=== PATIENT | female | born 1955 | race Caucasian/White ===

== ENCOUNTER 2016-10-21 18:20 | Emergency (ER) | payer OTHER ==
[~2016-10-21 18:20] MED LIST: ASPIRIN CHILDRE81 MG PO; CLINDAMYCIN HC300 MG PO; COL-RITE100 MG PO; HUMALOG100 U/ML SC; HYDROCODONE BIT1 T11 PO; INVOKANA PO; KOMBIGLYZE XR 11 TE1 PO; LANTUS100 U/ML SC; LISINOPRIL20 MG PO; LOPRESSOR25 MG PO; LORAZEPAM0.5 MG PO; Motrin,Rufen800 MG PO; NEURONTIN300 MG PO; NITROSTAT0.4 MG SL; NORVASC5 MG PO; PHENERGAN W/ DE30 ML PO; PLAVIX75 MG PO; PLETAL50 MG PO; PREDNICOT10 MG PO; PRILOSEC20 MG PO; PROAIR HFA0.09 MG/AC INH; VICTOZA6 MG/ML SC; VITAMIN D50000 I2 PO; ZOLOFT100 MG PO
== END 2016-10-21 19:12 | disposition home or self-care (01) ==
LOC: ED 18:20
DX: G89.29 Other chronic pain (principal); M54.5 Low back pain; M79.645 Pain in left finger(s); R03.0 Elevated blood-pressure reading, without diagnosis of hypertension; Z88.0 Allergy status to penicillin; Z88.6 Allergy status to analgesic agent; Z79.4 Long term (current) use of insulin; Z79.899 Other long term (current) drug therapy

== ENCOUNTER 2016-11-06 16:25 | Emergency (ER) | payer OTHER ==
[~2016-11-06] VITALS: Ht 180.3 cm; Wt 115.7 kg
[2016-11-06] MEDS ORDERED: TRULICITY0.75 MG/0. SC (16:32)
[2016-11-06] MEDS ORDERED: TOUJEO300 U/ML SC (16:33)
[2016-11-06 16:46] LABS: BILIRUBIN NEGATIVE (NEGATIVE); BLOOD 2+ (NEGATIVE); CLARITY CLOUDY (CLEAR); COLOR YELLOW (YELLOW); GLUCOSE NEGATIVE (NEGATIVE); KETONE NEGATIVE (NEGATIVE); LEUKO ESTERASE 3+ (NEGATIVE); NITRITE NEGATIVE (NEGATIVE); PH 5.5 (5.0-9.0); PROTEIN NEGATIVE (NEGATIVE); SPECIFIC GRAVITY <= 1.005 (1.005-1.030); UROBILINOGEN 0.2 E.U./dl (0.2-1.0)
[2016-11-06 16:52] LABS: URINE REFLEX COMMENT YES (NO); WBC TNTC wbc/hpf (0-5)
[2016-11-06] MEDS ORDERED: BACTRIM DS 8001 TA1 PO (16:56)
== END 2016-11-06 17:01 | disposition home or self-care (01) ==
LOC: ED 16:25
PROVIDERS: Physician Assistant
DX: N30.01 Acute cystitis with hematuria (principal); Z91.030 Bee allergy status; Z88.0 Allergy status to penicillin; Z88.1 Allergy status to other antibiotic agents; Z88.6 Allergy status to analgesic agent; Z79.82 Long term (current) use of aspirin; Z79.899 Other long term (current) drug therapy

== ENCOUNTER 2017-10-25 16:56 | Inpatient (IN) | payer OTHER ==
[~2017-10-25] VITALS: Ht 180.3 cm; Wt 107.2 kg
[~2017-10-25 16:56] MED LIST changes: +BACTRIM DS 8001 TA1 PO; +TOUJEO300 U/ML SC; +TRULICITY0.75 MG/0. SC
[2017-10-25 16:57] VITALS: BP 153/56
[2017-10-25 18:10] LABS: ACT PARTIAL THROMBO TIME 23.9 SECONDS (20.8-31.5)
[2017-10-25 18:13] LABS: ALBUMIN 3.2 gm/dl (3.1-4.5); ALKALINE PHOSPHATASE 113 U/L (45-117); BUN 15 mg/dl (7-24); CHLORIDE 96 mmol/L (98-107); CREATININE 1.02 mg/dL (0.55-1.02); LIPASE 291 U/L (73-393); POTASSIUM 3.4 mmol/L (3.5-5.1); SGOT/AST 23 IU/L (3-35); SGPT/ALT 31 U/L (12-78); SODIUM 136 mmol/L (136-145); TOTAL PROTEIN 7.7 gm/dL (6.4-8.2)
[2017-10-25 18:14] LABS: TROPONIN I < 0.015 ng/ml (<0.045)
[2017-10-25 18:24] LABS: BASO # 0.1 10*3/uL (0.0-0.1); BASO % 0.5 % (0.0-1.0); EOS # 0.2 10*3/uL (0.0-0.4); EOS % 1.7 % (1.0-4.0); HEMATOCRIT 36.3 % (37.0-47.0); HEMOGLOBIN 11.8 g/dl (12.0-16.0); LYMPH # 2.5 10*3/uL (1.3-4.4); MEAN CELL VOLUME 85.8 fl (81.0-99.0); MEAN CORPUSCULAR HGB 27.9 pg (27.0-31.0); MEAN CORPUSCULAR HGB CONC 32.5 g/dl (33.0-37.0); MEAN PLATELET VOLUME 9.5 fl (9.6-12.3); MONO % 8.7 % (3.0-9.0); NEUT % 67.6 % (47.0-73.0); PLATELET COUNT AUTOMATED 226 10*3/uL (130-400); RED BLOOD COUNT 4.23 10*6/uL (4.10-5.10); RED CELL DISTRI WIDTH 15.3 % (0-14.5); WHITE BLOOD COUNT 11.8 10*3/uL (4.8-10.8)
[2017-10-25 18:38] VITALS: BP 145/56
[2017-10-25 18:51] VITALS: BP 145/56
[2017-10-25 20:00] VITALS: BP 170/51
[2017-10-25 20:33] VITALS: BP 170/51
[2017-10-25] MEDS ORDERED: BUMETANIDE0.5 MG PO (21:03)
[2017-10-26] VITALS: BP 167/49
[2017-10-26 07:44] LABS: BASO % 0.1 % (0.0-1.0); HEMATOCRIT 33.7 % (37.0-47.0); HEMOGLOBIN 10.9 g/dl (12.0-16.0); LYMPH # 1.1 10*3/uL (1.3-4.4); LYMPH % 9.9 % (27.0-41.0); MEAN CELL VOLUME 85.3 fl (81.0-99.0); MEAN CORPUSCULAR HGB 27.6 pg (27.0-31.0); MEAN CORPUSCULAR HGB CONC 32.3 g/dl (33.0-37.0); MEAN PLATELET VOLUME 9.5 fl (9.6-12.3); MONO # 0.6 10*3/uL (0.1-1.0); MONO % 5.5 % (3.0-9.0); NEUT % 83.6 % (47.0-73.0); PLATELET COUNT AUTOMATED 206 10*3/uL (130-400); RED BLOOD COUNT 3.95 10*6/uL (4.10-5.10); RED CELL DISTRI WIDTH 14.8 % (0-14.5); WHITE BLOOD COUNT 10.8 10*3/uL (4.8-10.8)
[2017-10-26 07:56] LABS: ACT PARTIAL THROMBO TIME 24.7 SECONDS (20.8-31.5); INTERNATIONAL NORM RATIO 1.1 (2.0-3.5)
[2017-10-26 08:00] VITALS: BP 133/46
[2017-10-26 08:25] LABS: ALBUMIN 2.8 gm/dl (3.1-4.5); BUN 15 mg/dl (7-24); CHLORIDE 97 mmol/L (98-107); CHOLESTEROL 207 mg/dL (<200); CREATININE 1.08 mg/dL (0.55-1.02); PHOSPHOROUS 4.2 mg/dL (2.5-4.9); POTASSIUM 3.7 mmol/L (3.5-5.1); SGOT/AST 19 IU/L (3-35); SGPT/ALT 26 U/L (12-78); SODIUM 134 mmol/L (136-145); TRIGLYCERIDES 227 mg/dl (<150); VLDL CHOLESTEROL 45 mg/dL (6-40)
[2017-10-26 08:30] LABS: ALKALINE PHOSPHATASE 97 U/L (45-117); FREE T4 0.88 ng/dl (0.76-1.46); HDL CHOLESTEROL 43 mg/dl (40-60); LDL CHOLESTEROL 119 mg/dL (9-159); THYROID STIM HORMONE (HS) 0.303 uIU/ml (0.358-4.75); TOTAL PROTEIN 6.8 gm/dL (6.4-8.2)
[2017-10-26 08:32] LABS: VITAMIN D, 25-HYDROXY 27.7 ng/mL (30-100)
[2017-10-26 12:00] VITALS: BP 112/34
[2017-10-26 16:00] VITALS: BP 148/58
[2017-10-26 20:00] VITALS: BP 144/52
[2017-10-27] VITALS: BP 139/75
[2017-10-27 06:25] LABS: BASO % 0.1 % (0.0-1.0); EOS % 0.1 % (1.0-4.0); HEMOGLOBIN 11.3 g/dl (12.0-16.0); LYMPH # 1.4 10*3/uL (1.3-4.4); LYMPH % 11.8 % (27.0-41.0); MEAN CORPUSCULAR HGB 27.8 pg (27.0-31.0); MEAN CORPUSCULAR HGB CONC 32.3 g/dl (33.0-37.0); MEAN PLATELET VOLUME 9.5 fl (9.6-12.3); MONO # 0.8 10*3/uL (0.1-1.0); MONO % 6.5 % (3.0-9.0); NEUT # 9.5 10*3/uL (2.3-7.9); NEUT % 80.4 % (47.0-73.0); PLATELET COUNT AUTOMATED 206 10*3/uL (130-400); RED BLOOD COUNT 4.07 10*6/uL (4.10-5.10); RED CELL DISTRI WIDTH 15.1 % (0-14.5); WHITE BLOOD COUNT 11.8 10*3/uL (4.8-10.8)
[2017-10-27 06:41] LABS: BUN 22 mg/dl (7-24); CHLORIDE 98 mmol/L (98-107); CREATININE 1.09 mg/dL (0.55-1.02); POTASSIUM 4.5 mmol/L (3.5-5.1); SODIUM 134 mmol/L (136-145)
[2017-10-27 08:00] VITALS: BP 140/46
[2017-10-27 12:00] VITALS: BP 146/55
[2017-10-27 16:00] VITALS: BP 120/48
[2017-10-27] MEDS ORDERED: METFORMIN ER500 MG PO (16:33)
[2017-10-27 20:00] VITALS: BP 157/57
[2017-10-28] VITALS: BP 172/70
[2017-10-28 04:00] VITALS: BP 142/51
[2017-10-28 06:13] LABS: BASO % 0.1 % (0.0-1.0); EOS % 0.1 % (1.0-4.0); HEMATOCRIT 36.4 % (37.0-47.0); HEMOGLOBIN 11.6 g/dl (12.0-16.0); LYMPH # 3.6 10*3/uL (1.3-4.4); LYMPH % 26.8 % (27.0-41.0); MEAN CELL VOLUME 86.5 fl (81.0-99.0); MEAN CORPUSCULAR HGB 27.6 pg (27.0-31.0); MEAN CORPUSCULAR HGB CONC 31.9 g/dl (33.0-37.0); MEAN PLATELET VOLUME 9.6 fl (9.6-12.3); MONO # 1.1 10*3/uL (0.1-1.0); MONO % 7.8 % (3.0-9.0); NEUT # 8.6 10*3/uL (2.3-7.9); NEUT % 64.2 % (47.0-73.0); PLATELET COUNT AUTOMATED 223 10*3/uL (130-400); RED BLOOD COUNT 4.21 10*6/uL (4.10-5.10); RED CELL DISTRI WIDTH 15.3 % (0-14.5); WHITE BLOOD COUNT 13.4 10*3/uL (4.8-10.8)
[2017-10-28 06:25] LABS: BUN 23 mg/dl (7-24); CHLORIDE 97 mmol/L (98-107); CREATININE 0.98 mg/dL (0.55-1.02); POTASSIUM 3.7 mmol/L (3.5-5.1); SODIUM 136 mmol/L (136-145)
[2017-10-28 08:00] VITALS: BP 137/58
[2017-10-28 16:00] VITALS: BP 132/59
[2017-10-28 20:00] VITALS: BP 147/56
[2017-10-29] VITALS: BP 146/52
[2017-10-29 08:00] VITALS: BP 142/57
[2017-10-29] MEDS ORDERED: MUCINEX ER600 MG PO (09:37)
[2017-10-29] MEDS ORDERED: PREDNISONE10 MG PO (09:37)
[2017-10-29] MEDS ORDERED: LEVAQUIN500 M2 PO (09:37)
[2017-10-29] MEDS ORDERED: BENZONATATE100 M1 PO (09:37)
== END 2017-10-29 11:08 | disposition home or self-care (01) | DRG 190 ==
LOC: ED 16:56 → 4E 18:34 → EDHOLD 18:34 → 4E 19:33
PROVIDERS: Emergency Medicine; Internal Medicine
DX: J44.1 Chronic obstructive pulmonary disease with (acute) exacerbation (principal); J18.9 Pneumonia, unspecified organism; E11.51 Type 2 diabetes mellitus with diabetic peripheral angiopathy without gangrene; E11.649 Type 2 diabetes mellitus with hypoglycemia without coma; I50.9 Heart failure, unspecified; E66.01 Morbid (severe) obesity due to excess calories; I25.810 Atherosclerosis of coronary artery bypass graft(s) without angina pectoris; E87.2 Acidosis; J44.0 Chronic obstructive pulmonary disease with (acute) lower respiratory infection; D64.9 Anemia, unspecified; E87.6 Hypokalemia; E83.42 Hypomagnesemia; E11.65 Type 2 diabetes mellitus with hyperglycemia; M79.2 Neuralgia and neuritis, unspecified; G89.29 Other chronic pain; E87.8 Other disorders of electrolyte and fluid balance, not elsewhere classified; F41.9 Anxiety disorder, unspecified; I25.2 Old myocardial infarction; Z88.5 Allergy status to narcotic agent; Z88.0 Allergy status to penicillin; Z88.1 Allergy status to other antibiotic agents; Z91.030 Bee allergy status; Z79.82 Long term (current) use of aspirin; Z79.4 Long term (current) use of insulin; Z79.899 Other long term (current) drug therapy; Z87.440 Personal history of urinary (tract) infections; Z83.3 Family history of diabetes mellitus; Z82.49 Family history of ischemic heart disease and other diseases of the circulatory system; Z90.49 Acquired absence of other specified parts of digestive tract; Z95.1 Presence of aortocoronary bypass graft; Z90.710 Acquired absence of both cervix and uterus; Z95.0 Presence of cardiac pacemaker; Z95.828 Presence of other vascular implants and grafts; Z87.891 Personal history of nicotine dependence; Z83.6 Family history of other diseases of the respiratory system; Z84.89 Family history of other specified conditions

== ENCOUNTER 2017-11-28 21:13 | Emergency (ER) | payer OTHER ==
[~2017-11-28] VITALS: Ht 180.3 cm; Wt 121.6 kg
--- NOTE | ~2017-11-28 | EKG ---
[place], [place] ELECTROCARDIOGRAM REPORT NAME: WILLIE SALES UNIT #: [id number] ROOM: DOCTOR: EPIPHANY DRAFT REPORT BIRTHDATE: [birth year] [facility] Test Date: 2017-11-28 Test Time: 22:22:23 Pat Name: WILLIE SALES Department: ER Room: 22 Gender: F Staffing Account Manager: : 1955 Requested By: SAMY DUEÑAS Order Number: [id number] Reading MD: Javad Vasquez MD Measurements Intervals Collins Rate: 63 P: 38 VT: 187 QRS: 62 QRSD: 116 T: 9 QT: 439 QTc: 450 Interpretive Statements Sinus rhythm Incomplete right bundle branch block Minimal ST elevation, anterior leads Electronically Signed On 11-30-2017 11:08:38 PDT by Javad Vasquez MD CM:EKGRPT:ELECTROCARDIOGRAM REPORT [id number] SAMY DUEÑAS EPIPHANY DRAFT REPORT SAMY DUEÑAS
[~2017-11-28 21:13] MED LIST changes: +BENZONATATE100 M1 PO; +BUMETANIDE0.5 MG PO; +LEVAQUIN500 M2 PO; +METFORMIN ER500 MG PO; +MUCINEX ER600 MG PO; +PREDNISONE10 MG PO
[2017-11-28 22:37] LABS: BASO # 0.1 10*3/uL (0.0-0.1); BASO % 0.5 % (0.0-1.0); EOS # 0.2 10*3/uL (0.0-0.4); EOS % 2.1 % (1.0-4.0); HEMATOCRIT 36.3 % (37.0-47.0); HEMOGLOBIN 11.8 g/dl (12.0-16.0); LYMPH # 3.2 10*3/uL (1.3-4.4); LYMPH % 33.3 % (27.0-41.0); MEAN CELL VOLUME 87.3 fl (81.0-99.0); MEAN CORPUSCULAR HGB 28.4 pg (27.0-31.0); MEAN CORPUSCULAR HGB CONC 32.5 g/dl (33.0-37.0); MEAN PLATELET VOLUME 9.3 fl (9.6-12.3); MONO # 0.9 10*3/uL (0.1-1.0); MONO % 9.8 % (3.0-9.0); NEUT # 5.1 10*3/uL (2.3-7.9); NEUT % 53.7 % (47.0-73.0); PLATELET COUNT AUTOMATED 187 10*3/uL (130-400); RED BLOOD COUNT 4.16 10*6/uL (4.10-5.10); RED CELL DISTRI WIDTH 14.7 % (0-14.5); WHITE BLOOD COUNT 9.6 10*3/uL (4.8-10.8)
[2017-11-28 22:47] LABS: ACT PARTIAL THROMBO TIME 24.3 SECONDS (20.8-31.5); INTERNATIONAL NORM RATIO 1.1 (2.0-3.5)
[2017-11-28 22:53] LABS: ALBUMIN 3.1 gm/dl (3.1-4.5); ALKALINE PHOSPHATASE 108 U/L (45-117); BUN 12 mg/dl (7-24); CHLORIDE 102 mmol/L (98-107); LIPASE 770 U/L (73-393); POTASSIUM 3.6 mmol/L (3.5-5.1); SGOT/AST 28 IU/L (3-35); SGPT/ALT 32 U/L (12-78); SODIUM 139 mmol/L (136-145); TOTAL PROTEIN 7.1 gm/dL (6.4-8.2)
[2017-11-28 22:54] LABS: TROPONIN I < 0.015 ng/ml (<0.045)
[2017-11-29] MEDS ORDERED: MEDROL DOSEPAK4 MG PO (00:36)
== END 2017-11-29 01:09 | disposition home or self-care (01) ==
LOC: ED 21:13
PROVIDERS: Nurse Practitioner Family
DX: R60.0 Localized edema (principal); Z91.030 Bee allergy status; Z88.0 Allergy status to penicillin; Z88.1 Allergy status to other antibiotic agents; Z88.6 Allergy status to analgesic agent; Z79.899 Other long term (current) drug therapy; Z79.82 Long term (current) use of aspirin; Z87.891 Personal history of nicotine dependence

== ENCOUNTER 2017-12-21 21:29 | Emergency (ER) | payer OTHER ==
[~2017-12-21] VITALS: Ht 180.3 cm; Wt 117.9 kg
[~2017-12-21 21:29] MED LIST changes: +MEDROL DOSEPAK4 MG PO
[2017-12-21 22:21] LABS: BILIRUBIN NEGATIVE (NEGATIVE); BLOOD 2+ (NEGATIVE); CLARITY CLOUDY (CLEAR); COLOR YELLOW (YELLOW); GLUCOSE NEGATIVE (NEGATIVE); KETONE NEGATIVE (NEGATIVE); LEUKO ESTERASE 3+ (NEGATIVE); NITRITE NEGATIVE (NEGATIVE); UROBILINOGEN 0.2 E.U./dl (0.2-1.0)
[2017-12-21 22:32] LABS: WBC TNTC wbc/hpf (0-5)
[2017-12-21] MEDS ORDERED: CIPRO500 MG PO (23:24)
[2017-12-21] MEDS ORDERED: PYRIDIUM200 M1 PO (23:24)
== END 2017-12-21 23:26 | disposition home or self-care (01) ==
LOC: ED 21:29
PROVIDERS: Emergency Medicine
DX: N39.0 Urinary tract infection, site not specified (principal); I25.10 Atherosclerotic heart disease of native coronary artery without angina pectoris; G89.29 Other chronic pain; J44.9 Chronic obstructive pulmonary disease, unspecified; E66.01 Morbid (severe) obesity due to excess calories; I11.0 Hypertensive heart disease with heart failure; I50.9 Heart failure, unspecified; E11.649 Type 2 diabetes mellitus with hypoglycemia without coma; Z79.4 Long term (current) use of insulin; Z79.82 Long term (current) use of aspirin; Z87.891 Personal history of nicotine dependence; Z90.49 Acquired absence of other specified parts of digestive tract; Z95.1 Presence of aortocoronary bypass graft; Z95.0 Presence of cardiac pacemaker; Z90.711 Acquired absence of uterus with remaining cervical stump; Z79.899 Other long term (current) drug therapy; Z91.030 Bee allergy status; Z88.0 Allergy status to penicillin; Z88.5 Allergy status to narcotic agent; Z88.1 Allergy status to other antibiotic agents

== ENCOUNTER 2018-07-06 11:04 | Emergency (ER) | payer OTHER ==
[~2018-07-06] VITALS: Ht 180.3 cm; Wt 114.3 kg
[~2018-07-06 11:04] MED LIST changes: +CIPRO500 MG PO; +PYRIDIUM200 M1 PO
[2018-07-06 11:23] LABS: BILIRUBIN NEGATIVE (NEGATIVE); BLOOD 2+ (NEGATIVE); CLARITY SL CLOUDY (CLEAR); COLOR YELLOW (YELLOW); GLUCOSE NEGATIVE (NEGATIVE); KETONE NEGATIVE (NEGATIVE); LEUKO ESTERASE 3+ (NEGATIVE); NITRITE NEGATIVE (NEGATIVE); PH 5.5 (5.0-9.0); SPECIFIC GRAVITY <= 1.005 (1.005-1.030); UROBILINOGEN 0.2 E.U./dl (0.2-1.0)
[2018-07-06 11:33] LABS: BACTERIA 2+; RBC TNTC rbc/hpf (0-2); WBC TNTC wbc/hpf (0-5)
[2018-07-06] MEDS ORDERED: PYRIDIUM200 M1 PO (11:44)
[2018-07-06] MEDS ORDERED: SEPTDS PO (11:44)
[2018-07-06] MEDS ORDERED: ZOFRAN4 MG PO (11:44)
== END 2018-07-06 12:05 | disposition home or self-care (01) ==
LOC: ED 11:04
PROVIDERS: Nurse Practitioner Family
DX: N39.0 Urinary tract infection, site not specified (principal); R03.0 Elevated blood-pressure reading, without diagnosis of hypertension; G89.29 Other chronic pain; I25.10 Atherosclerotic heart disease of native coronary artery without angina pectoris; J44.9 Chronic obstructive pulmonary disease, unspecified; E66.01 Morbid (severe) obesity due to excess calories; E11.40 Type 2 diabetes mellitus with diabetic neuropathy, unspecified; E11.51 Type 2 diabetes mellitus with diabetic peripheral angiopathy without gangrene; I50.9 Heart failure, unspecified; Z88.1 Allergy status to other antibiotic agents; Z88.5 Allergy status to narcotic agent; Z88.0 Allergy status to penicillin; Z91.030 Bee allergy status; Z79.2 Long term (current) use of antibiotics; Z79.899 Other long term (current) drug therapy; Z79.84 Long term (current) use of oral hypoglycemic drugs; Z79.4 Long term (current) use of insulin; Z79.82 Long term (current) use of aspirin; Z90.49 Acquired absence of other specified parts of digestive tract; Z90.710 Acquired absence of both cervix and uterus; Z87.891 Personal history of nicotine dependence

== ENCOUNTER 2018-07-10 20:53 | Emergency (ER) | payer OTHER ==
[~2018-07-10] VITALS: Ht 180.3 cm; Wt 113.4 kg
[~2018-07-10 20:53] MED LIST changes: +SEPTDS PO; +ZOFRAN4 MG PO
[2018-07-10 21:20] LABS: BILIRUBIN 2+ (NEGATIVE); BLOOD 2+ (NEGATIVE); CLARITY CLOUDY (CLEAR); COLOR ORANGE (YELLOW); GLUCOSE 1+ (NEGATIVE); KETONE 1+ (NEGATIVE); NITRITE POSITIVE (NEGATIVE); UROBILINOGEN >= 8.0 E.U./dl (0.2-1.0)
[2018-07-10 21:25] LABS: LEUKO ESTERASE 2+ (NEGATIVE)
[2018-07-10 21:30] LABS: WBC TNTC wbc/hpf (0-5)
[2018-07-10] MEDS ORDERED: CIPRO500 MG PO (21:34)
== END 2018-07-10 21:55 | disposition home or self-care (01) ==
LOC: ED 20:53
PROVIDERS: Student in an Organized Health Care Education/Training Program
DX: N39.0 Urinary tract infection, site not specified (principal); I25.10 Atherosclerotic heart disease of native coronary artery without angina pectoris; G89.29 Other chronic pain; J44.9 Chronic obstructive pulmonary disease, unspecified; E11.40 Type 2 diabetes mellitus with diabetic neuropathy, unspecified; E66.01 Morbid (severe) obesity due to excess calories; E11.51 Type 2 diabetes mellitus with diabetic peripheral angiopathy without gangrene; I50.9 Heart failure, unspecified; Z91.030 Bee allergy status; Z88.0 Allergy status to penicillin; Z88.1 Allergy status to other antibiotic agents; Z88.5 Allergy status to narcotic agent; Z79.2 Long term (current) use of antibiotics; Z79.899 Other long term (current) drug therapy; Z79.4 Long term (current) use of insulin; Z79.82 Long term (current) use of aspirin; Z79.84 Long term (current) use of oral hypoglycemic drugs; Z90.49 Acquired absence of other specified parts of digestive tract; Z90.710 Acquired absence of both cervix and uterus; Z87.891 Personal history of nicotine dependence

== ENCOUNTER 2019-11-29 14:45 | Emergency (ER) | payer OTHER ==
[~2019-11-29] VITALS: Ht 180.3 cm; Wt 115.7 kg
== END 2019-11-29 17:08 | disposition home or self-care (01) ==
LOC: ED 14:45
DX: S92.512A Displaced fracture of proximal phalanx of left lesser toe(s), initial encounter for closed fracture (principal); E11.9 Type 2 diabetes mellitus without complications; I25.2 Old myocardial infarction; J44.9 Chronic obstructive pulmonary disease, unspecified; I50.9 Heart failure, unspecified; Z88.0 Allergy status to penicillin; Z88.8 Allergy status to other drugs, medicaments and biological substances; Z88.5 Allergy status to narcotic agent; Z91.030 Bee allergy status; Z79.899 Other long term (current) drug therapy; X58.XXXA Exposure to other specified factors, initial encounter; Y93.89 Activity, other specified; Y92.89 Other specified places as the place of occurrence of the external cause; Y99.8 Other external cause status

== ENCOUNTER 2020-03-20 14:17 | Emergency (ER) | payer OTHER ==
[~2020-03-20] VITALS: Ht 180.3 cm; Wt 117.9 kg
[2020-03-20 14:55] LABS: BILIRUBIN Negative (Negative); BLOOD 3+ (Negative); CLARITY Turbid (Clear); COLOR Yellow (Yellow); GLUCOSE Negative (Negative); KETONE Negative (Negative); LEUKO ESTERASE 3+ (Negative); NITRITE Negative (Negative); SPECIFIC GRAVITY <= 1.005 (1.001-1.030); UROBILINOGEN 0.2 E.U./dl (0.0-1.0)
[2020-03-20 15:02] LABS: BACTERIA 2+; RBC TNTC rbc/hpf (0-2); WBC TNTC wbc/hpf (0-5)
[2020-03-20] MEDS ORDERED: MACROBID100 M1 PO (16:28)
[2020-03-20] MEDS ORDERED: PYRIDIUM200 M1 PO (16:28)
== END 2020-03-20 16:25 | disposition home or self-care (01) ==
LOC: ED 14:17
PROVIDERS: Nurse Practitioner Family
DX: N39.0 Urinary tract infection, site not specified (principal); Z91.030 Bee allergy status; Z88.0 Allergy status to penicillin; Z79.899 Other long term (current) drug therapy; Z79.4 Long term (current) use of insulin; Z79.82 Long term (current) use of aspirin

== ENCOUNTER → 2020-06-29 | Outpatient (CLI) | payer OTHER ==
[~2020-06-29] MED LIST changes: +MACROBID100 M1 PO
== END | disposition home or self-care (01) ==
LOC: COVID19 12:54
PROVIDERS: ATTEND Family Medicine
DX: Z20.822 Contact with and (suspected) exposure to COVID-19 (principal)

== ENCOUNTER 2020-09-06 19:04 | Emergency (ER) | payer OTHER ==
[~2020-09-06] VITALS: Ht 180.3 cm; Wt 125.6 kg
[2020-09-06 19:59] LABS: BASO # 0.1 10*3/uL (0.0-0.1); BASO % 0.8 % (0.0-1.0); EOS # 0.3 10*3/uL (0.0-0.4); EOS % 2.9 % (1.0-4.0); LYMPH # 1.6 10*3/uL (1.3-4.4); MEAN CORPUSCULAR HGB 27.2 pg (27.0-31.0); MEAN CORPUSCULAR HGB CONC 31.7 g/dl (33.0-37.0); MEAN PLATELET VOLUME 9.2 fl (9.6-12.3); MONO # 0.8 10*3/uL (0.1-1.0); MONO % 8.3 % (3.0-9.0); NEUT # 6.3 10*3/uL (2.3-7.9); NEUT % 69.6 % (47.0-73.0); PLATELET COUNT AUTOMATED 199 10*3/uL (130-400); RED BLOOD COUNT 3.49 10*6/uL (4.10-5.10); RED CELL DISTRI WIDTH 15.5 % (0-14.5); WHITE BLOOD COUNT 9.1 10*3/uL (4.8-10.8)
[2020-09-06 20:10] LABS: BUN 18 mg/dl (7-24); CHLORIDE 103 mmol/L (98-107); CREATININE 0.99 mg/dL (0.55-1.02); POTASSIUM 4.9 mmol/L (3.5-5.1); SODIUM 133 mmol/L (136-145)
== END 2020-09-06 21:54 | disposition home or self-care (01) ==
LOC: ED 19:04
PROVIDERS: Internal Medicine
DX: I50.21 Acute systolic (congestive) heart failure (principal); E11.65 Type 2 diabetes mellitus with hyperglycemia; E87.1 Hypo-osmolality and hyponatremia; D64.9 Anemia, unspecified; Z91.030 Bee allergy status; J44.9 Chronic obstructive pulmonary disease, unspecified; Z88.8 Allergy status to other drugs, medicaments and biological substances; Z88.5 Allergy status to narcotic agent; Z79.899 Other long term (current) drug therapy; Z79.4 Long term (current) use of insulin; Z90.49 Acquired absence of other specified parts of digestive tract; Z95.1 Presence of aortocoronary bypass graft; Z98.890 Other specified postprocedural states; Z87.891 Personal history of nicotine dependence; Z95.0 Presence of cardiac pacemaker

== ENCOUNTER 2020-09-20 23:56 | Emergency (ER) | payer OTHER ==
[~2020-09-20] VITALS: Ht 180.3 cm; Wt 119.3 kg
[2020-09-21 01:31] LABS: BILIRUBIN Negative (Negative); BLOOD Negative (Negative); CLARITY Clear (Clear); COLOR Yellow (Yellow); GLUCOSE Negative (Negative); KETONE Negative (Negative); LEUKO ESTERASE Negative (Negative); NITRITE Negative (Negative); PH 5.5 (4.5-8.0); UROBILINOGEN 0.2 E.U./dl (0.0-1.0)
== END 2020-09-21 02:30 | disposition home or self-care (01) ==
LOC: ED 23:56
PROVIDERS: Internal Medicine
DX: R30.0 Dysuria (principal); E66.9 Obesity, unspecified; Z87.891 Personal history of nicotine dependence; Z98.890 Other specified postprocedural states; Z95.1 Presence of aortocoronary bypass graft; Z90.710 Acquired absence of both cervix and uterus; Z79.899 Other long term (current) drug therapy; Z79.4 Long term (current) use of insulin; Z91.030 Bee allergy status; Z88.0 Allergy status to penicillin; Z88.1 Allergy status to other antibiotic agents; Z88.5 Allergy status to narcotic agent

== ENCOUNTER 2022-02-17 16:27 | Inpatient (IN) | payer OTHER ==
[~2022-02-17] VITALS: Ht 175.2 cm; Wt 122.1 kg
[2022-02-17 16:41] VITALS: BP 131/39
[2022-02-17 17:25] LABS: BASO # 0.1 10*3/uL (0.0-0.1); BASO % 0.6 % (0.0-1.0); EOS # 0.3 10*3/uL (0.0-0.4); EOS % 2.9 % (1.0-4.0); HEMATOCRIT 30.5 % (37.0-47.0); LYMPH # 1.8 10*3/uL (1.3-4.4); LYMPH % 18.8 % (27.0-41.0); MEAN CELL VOLUME 82.7 fl (81.0-99.0); MEAN CORPUSCULAR HGB 28.5 pg (27.0-31.0); MEAN CORPUSCULAR HGB CONC 34.4 g/dl (33.0-37.0); MEAN PLATELET VOLUME 8.2 fl (9.6-12.3); MONO % 10.8 % (3.0-9.0); NEUT # 6.3 10*3/uL (2.3-7.9); NEUT % 66.5 % (47.0-73.0); PLATELET COUNT AUTOMATED 223 10*3/uL (130-400); RED BLOOD COUNT 3.69 10*6/uL (4.10-5.10); RED CELL DISTRI WIDTH 13.5 % (0-14.5); WHITE BLOOD COUNT 9.4 10*3/uL (4.8-10.8)
[2022-02-17 17:43] LABS: ALKALINE PHOSPHATASE 132 U/L (45-117); BUN 28 mg/dl (7-24); CHLORIDE 85 mmol/L (98-107); CREATININE 1.09 mg/dL (0.55-1.02); POTASSIUM 3.9 mmol/L (3.5-5.1); SGOT/AST 45 IU/L (3-35); SGPT/ALT 28 U/L (12-78); SODIUM 121 mmol/L (136-145); TOTAL PROTEIN 7.5 gm/dL (6.4-8.2)
[2022-02-17 17:58] VITALS: BP 128/45
[2022-02-17 18:02] LABS: BILIRUBIN Negative (Negative); BLOOD Trace-Lysed (Negative); CLARITY Clear (Clear); COLOR Yellow (Yellow); GLUCOSE Negative (Negative); KETONE Negative (Negative); LEUKO ESTERASE Negative (Negative); NITRITE Negative (Negative); UROBILINOGEN 0.2 E.U./dl (0.0-1.0)
[2022-02-17 18:11] LABS: BACTERIA 1+; EPITHELIAL CELLS 16-20
[2022-02-17 18:57] VITALS: BP 141/59
[2022-02-17 19:00] VITALS: BP 141/69
[2022-02-17 20:53] VITALS: BP 118/61
[2022-02-17 21:14] VITALS: BP 129/51
[2022-02-18] VITALS: BP 154/64
[2022-02-18 03:58] LABS: BASO # 0.1 10*3/uL (0.0-0.1); BASO % 0.6 % (0.0-1.0); EOS # 0.2 10*3/uL (0.0-0.4); EOS % 2.7 % (1.0-4.0); HEMATOCRIT 31.4 % (37.0-47.0); LYMPH # 1.3 10*3/uL (1.3-4.4); LYMPH % 15.8 % (27.0-41.0); MEAN CELL VOLUME 83.1 fl (81.0-99.0); MEAN CORPUSCULAR HGB 27.8 pg (27.0-31.0); MEAN CORPUSCULAR HGB CONC 33.4 g/dl (33.0-37.0); MEAN PLATELET VOLUME 8.3 fl (9.6-12.3); MONO % 11.4 % (3.0-9.0); NEUT # 5.8 10*3/uL (2.3-7.9); NEUT % 68.7 % (47.0-73.0); PLATELET COUNT AUTOMATED 233 10*3/uL (130-400); RED BLOOD COUNT 3.78 10*6/uL (4.10-5.10); RED CELL DISTRI WIDTH 13.7 % (0-14.5); WHITE BLOOD COUNT 8.4 10*3/uL (4.8-10.8)
[2022-02-18 04:08] LABS: ACT PARTIAL THROMBO TIME 29.9 SECONDS (20.0-32.1); INTERNATIONAL NORM RATIO 1.1 (2.0-3.5)
[2022-02-18 04:15] LABS: CREATININE 1.19 mg/dL (0.55-1.02); FREE T4 1.14 ng/dl (0.76-1.46); TOTAL PROTEIN 7.5 gm/dL (6.4-8.2)
[2022-02-18 04:20] VITALS: BP 149/79
[2022-02-18 04:20] LABS: THYROID STIM HORMONE (HS) 1.31 uIU/ml (0.358-4.75)
[2022-02-18 06:30] VITALS: BP 148/72
[2022-02-18 08:35] VITALS: BP 146/70
[2022-02-18] MEDS ORDERED: PROAIR HFA8.5 GM INH (12:53)
[2022-02-18] MEDS ORDERED: ALBUTEROL S5 MG/1 ML INH (12:53)
[2022-02-18] MEDS ORDERED: ASPIRIN81 M1 PO (12:54)
[2022-02-18] MEDS ORDERED: ATORVASTATIN CA80 M1 PO (12:54)
[2022-02-18] MEDS ORDERED: BENZONATATE200 MG PO (12:55)
[2022-02-18] MEDS ORDERED: RENAPLEX TABLE1 EACH PO (12:55)
[2022-02-18] MEDS ORDERED: BUMETANIDE2 MG PO (12:55)
[2022-02-18] MEDS ORDERED: ENTRESTO 49 MG1 EACH PO (12:56)
[2022-02-18] MEDS ORDERED: WELLBUTRIN SR150 MG PO (12:56)
[2022-02-18] MEDS ORDERED: FEROSUL325 M1 PO (12:58)
[2022-02-18] MEDS ORDERED: GABAPENTIN800 MG PO (12:59)
[2022-02-18] MEDS ORDERED: HYDROCODONE-AC1 EACH PO (13:01)
[2022-02-18] MEDS ORDERED: Metolazone5 MG PO (13:02)
[2022-02-18] MEDS ORDERED: MAGNESIUM OXID400 MG PO (13:02)
[2022-02-18] MEDS ORDERED: LORAZEPAM0.5 M1 PO (13:02)
[2022-02-18] MEDS ORDERED: OMEPRAZOLE MAGN20 MG PO (13:03)
[2022-02-18] MEDS ORDERED: NOVOLOG FL100 UNIT/2 SQ (13:03)
[2022-02-18] MEDS ORDERED: KLOR-CON M1010 ME1 PO (13:04)
[2022-02-18] MEDS ORDERED: ENDOCET 5-3251 EACH PO (13:04)
[2022-02-18] MEDS ORDERED: ONE-DAILY MULT1 EAC1 PO (13:04)
[2022-02-18] MEDS ORDERED: SERTRALINE HYD100 MG PO (13:05)
[2022-02-18] MEDS ORDERED: REPAGLINIDE1 M1 PO (13:05)
[2022-02-18] MEDS ORDERED: TOUJEO SOL300 UNIT/1 SQ (13:06)
[2022-02-18] MEDS ORDERED: SYMB80 INH (13:06)
[2022-02-18] MEDS ORDERED: TRULICITY1.5 MG/0.5 SC (13:07)
[2022-02-18] MEDS ORDERED: KENALOG 0.1%80 GM T (13:07)
[2022-02-18 13:22] VITALS: BP 148/62
[2022-02-18] MEDS ORDERED: WELLBUTRIN XL150 MG PO (19:09)
[2022-02-18 20:30] VITALS: BP 154/64
[2022-02-18 21:32] LABS: CREATININE 1.21 mg/dL (0.55-1.02); POTASSIUM 4.4 mmol/L (3.5-5.1)
[2022-02-19] VITALS: BP 160/56
[2022-02-19 07:17] LABS: BASO % 0.2 % (0.0-1.0); EOS % 0.1 % (1.0-4.0); HEMATOCRIT 31.5 % (37.0-47.0); LYMPH % 10.9 % (27.0-41.0); MEAN CELL VOLUME 82.9 fl (81.0-99.0); MEAN CORPUSCULAR HGB 28.2 pg (27.0-31.0); MEAN PLATELET VOLUME 8.5 fl (9.6-12.3); MONO # 0.6 10*3/uL (0.1-1.0); MONO % 6.1 % (3.0-9.0); NEUT # 7.8 10*3/uL (2.3-7.9); NEUT % 81.9 % (47.0-73.0); PLATELET COUNT AUTOMATED 257 10*3/uL (130-400); RED CELL DISTRI WIDTH 13.7 % (0-14.5); WHITE BLOOD COUNT 9.6 10*3/uL (4.8-10.8)
[2022-02-19 07:31] LABS: CREATININE 1.11 mg/dL (0.55-1.02); POTASSIUM 4.4 mmol/L (3.5-5.1)
[2022-02-19 08:00] VITALS: BP 150/56
[2022-02-19 12:00] VITALS: BP 149/47
[2022-02-19 16:00] VITALS: BP 122/51
[2022-02-19 18:26] LABS: BUN 33 mg/dl (7-24); CHLORIDE 90 mmol/L (98-107); POTASSIUM 4.5 mmol/L (3.5-5.1); SODIUM 121 mmol/L (136-145)
[2022-02-19 20:00] VITALS: BP 123/71
[2022-02-20] VITALS: BP 152/62
[2022-02-20 04:04] LABS: BASO % 0.1 % (0.0-1.0); HEMATOCRIT 28.1 % (37.0-47.0); LYMPH # 0.9 10*3/uL (1.3-4.4); LYMPH % 9.9 % (27.0-41.0); MEAN CELL VOLUME 84.9 fl (81.0-99.0); MEAN CORPUSCULAR HGB 28.4 pg (27.0-31.0); MEAN CORPUSCULAR HGB CONC 33.5 g/dl (33.0-37.0); MEAN PLATELET VOLUME 8.3 fl (9.6-12.3); MONO # 0.5 10*3/uL (0.1-1.0); MONO % 5.3 % (3.0-9.0); NEUT # 7.8 10*3/uL (2.3-7.9); NEUT % 83.5 % (47.0-73.0); PLATELET COUNT AUTOMATED 197 10*3/uL (130-400); RED BLOOD COUNT 3.31 10*6/uL (4.10-5.10); RED CELL DISTRI WIDTH 13.6 % (0-14.5); WHITE BLOOD COUNT 9.4 10*3/uL (4.8-10.8)
[2022-02-20 04:18] LABS: BUN 37 mg/dl (7-24); CHLORIDE 90 mmol/L (98-107); CREATININE 1.01 mg/dL (0.55-1.02); POTASSIUM 4.6 mmol/L (3.5-5.1); SODIUM 123 mmol/L (136-145)
[2022-02-20 08:00] VITALS: BP 154/56
[2022-02-20 12:00] VITALS: BP 150/67
[2022-02-20 13:40] LABS: CREATININE 1.14 mg/dL (0.55-1.02); POTASSIUM 4.7 mmol/L (3.5-5.1)
[2022-02-20 14:00] LABS: BILIRUBIN Negative (Negative); BLOOD 2+ (Negative); CLARITY Clear (Clear); COLOR Yellow (Yellow); GLUCOSE Negative (Negative); KETONE Negative (Negative); LEUKO ESTERASE Negative (Negative); NITRITE Negative (Negative); PH 5.5 (4.5-8.0); UROBILINOGEN 0.2 E.U./dl (0.0-1.0)
[2022-02-20 14:10] LABS: YEAST 1+
[2022-02-20 14:11] LABS: BACTERIA 1+; RBC 0-2 rbc/hpf (0-2)
[2022-02-20 14:21] LABS: URINE CREATININE RANDOM 40.6 mg/dL
[2022-02-20 16:00] VITALS: BP 105/80
[2022-02-20 20:00] VITALS: BP 164/48
[2022-02-20 20:34] LABS: BUN 35 mg/dl (7-24); CHLORIDE 94 mmol/L (98-107); POTASSIUM 4.6 mmol/L (3.5-5.1); SODIUM 125 mmol/L (136-145)
[2022-02-21] VITALS: BP 143/55
[2022-02-21 08:00] VITALS: BP 141/66
[2022-02-21 11:25] LABS: BASO % 0.2 % (0.0-1.0); LYMPH # 0.9 10*3/uL (1.3-4.4); LYMPH % 7.1 % (27.0-41.0); MEAN CORPUSCULAR HGB CONC 33.3 g/dl (33.0-37.0); MEAN PLATELET VOLUME 8.2 fl (9.6-12.3); MONO % 7.2 % (3.0-9.0); NEUT # 11.2 10*3/uL (2.3-7.9); NEUT % 84.7 % (47.0-73.0); PLATELET COUNT AUTOMATED 237 10*3/uL (130-400); RED BLOOD COUNT 3.57 10*6/uL (4.10-5.10); WHITE BLOOD COUNT 13.2 10*3/uL (4.8-10.8)
[2022-02-21 11:38] LABS: BUN 34 mg/dl (7-24); CHLORIDE 96 mmol/L (98-107); CREATININE 1.07 mg/dL (0.55-1.02); POTASSIUM 4.8 mmol/L (3.5-5.1); SODIUM 129 mmol/L (136-145)
[2022-02-21 12:00] VITALS: BP 169/57
[2022-02-21 16:00] VITALS: BP 165/75
[2022-02-21 20:00] VITALS: BP 133/40
[2022-02-22] VITALS: BP 163/66
[2022-02-22 06:26] LABS: BUN 36 mg/dl (7-24); CHLORIDE 98 mmol/L (98-107); CREATININE 1.02 mg/dL (0.55-1.02); SGOT/AST 25 IU/L (3-35); SGPT/ALT 30 U/L (12-78); SODIUM 131 mmol/L (136-145)
[2022-02-22 06:28] LABS: ALKALINE PHOSPHATASE 106 U/L (45-117); TOTAL PROTEIN 7.1 gm/dL (6.4-8.2)
[2022-02-22 07:04] LABS: BASO # 0.1 10*3/uL (0.0-0.1); BASO % 0.4 % (0.0-1.0); EOS % 0.1 % (1.0-4.0); HEMATOCRIT 29.5 % (37.0-47.0); LYMPH # 1.6 10*3/uL (1.3-4.4); LYMPH % 12.8 % (27.0-41.0); MEAN CORPUSCULAR HGB CONC 32.5 g/dl (33.0-37.0); MEAN PLATELET VOLUME 8.8 fl (9.6-12.3); MONO # 1.2 10*3/uL (0.1-1.0); MONO % 9.8 % (3.0-9.0); NEUT # 9.5 10*3/uL (2.3-7.9); NEUT % 76.2 % (47.0-73.0); PLATELET COUNT AUTOMATED 248 10*3/uL (130-400); RED BLOOD COUNT 3.43 10*6/uL (4.10-5.10); RED CELL DISTRI WIDTH 14.3 % (0-14.5); WHITE BLOOD COUNT 12.5 10*3/uL (4.8-10.8)
[2022-02-22 08:00] VITALS: BP 168/58
[2022-02-22 12:00] VITALS: BP 150/51
[2022-02-22 16:00] VITALS: BP 141/56
[2022-02-22 20:00] VITALS: BP 151/50
[2022-02-23] VITALS: BP 163/57
[2022-02-23 06:44] LABS: BASO % 0.2 % (0.0-1.0); LYMPH # 1.1 10*3/uL (1.3-4.4); LYMPH % 9.5 % (27.0-41.0); MEAN CELL VOLUME 86.5 fl (81.0-99.0); MEAN CORPUSCULAR HGB 28.5 pg (27.0-31.0); MONO # 0.6 10*3/uL (0.1-1.0); MONO % 5.6 % (3.0-9.0); NEUT # 9.4 10*3/uL (2.3-7.9); NEUT % 83.9 % (47.0-73.0); PLATELET COUNT AUTOMATED 242 10*3/uL (130-400); RED BLOOD COUNT 3.47 10*6/uL (4.10-5.10); RED CELL DISTRI WIDTH 14.2 % (0-14.5); WHITE BLOOD COUNT 11.2 10*3/uL (4.8-10.8)
[2022-02-23 06:47] LABS: ALKALINE PHOSPHATASE 100 U/L (45-117); BUN 42 mg/dl (7-24); CHLORIDE 99 mmol/L (98-107); CREATININE 1.07 mg/dL (0.55-1.02); POTASSIUM 5.2 mmol/L (3.5-5.1); SGOT/AST 21 IU/L (3-35); SGPT/ALT 31 U/L (12-78); SODIUM 132 mmol/L (136-145); TOTAL PROTEIN 7.2 gm/dL (6.4-8.2)
[2022-02-23 08:00] VITALS: BP 180/57
[2022-02-23 12:00] VITALS: BP 150/65
[2022-02-23 16:00] VITALS: BP 163/51
[2022-02-23 20:00] VITALS: BP 160/45
[2022-02-24] VITALS: BP 144/49
[2022-02-24 06:38] LABS: BASO % 0.2 % (0.0-1.0); EOS % 0.1 % (1.0-4.0); HEMATOCRIT 28.9 % (37.0-47.0); LYMPH # 1.4 10*3/uL (1.3-4.4); LYMPH % 14.2 % (27.0-41.0); MEAN CELL VOLUME 87.3 fl (81.0-99.0); MEAN CORPUSCULAR HGB 28.1 pg (27.0-31.0); MEAN CORPUSCULAR HGB CONC 32.2 g/dl (33.0-37.0); MEAN PLATELET VOLUME 8.4 fl (9.6-12.3); MONO # 0.8 10*3/uL (0.1-1.0); MONO % 8.1 % (3.0-9.0); NEUT # 7.6 10*3/uL (2.3-7.9); NEUT % 76.8 % (47.0-73.0); PLATELET COUNT AUTOMATED 189 10*3/uL (130-400); RED BLOOD COUNT 3.31 10*6/uL (4.10-5.10); RED CELL DISTRI WIDTH 14.5 % (0-14.5); WHITE BLOOD COUNT 9.9 10*3/uL (4.8-10.8)
[2022-02-24 07:05] LABS: BUN 40 mg/dl (7-24); CHLORIDE 99 mmol/L (98-107); CREATININE 1.04 mg/dL (0.55-1.02); POTASSIUM 4.5 mmol/L (3.5-5.1); SODIUM 134 mmol/L (136-145)
[2022-02-24 08:00] VITALS: BP 127/93
[2022-02-24 12:00] VITALS: BP 136/54
[2022-02-24] MEDS ORDERED: PREDNISONE10 MG PO (12:24)
[2022-02-24] MEDS ORDERED: VITAMIN D250 MC1 PO (12:24)
[2022-02-24] MEDS ORDERED: MUCINEX1200 M1 PO (12:24)
[2022-02-24] MEDS ORDERED: BENZONATATE200 MG PO (12:24)
[2022-02-24] MEDS ORDERED: LEVOFLOXACIN750 M2 PO (12:24)
== END 2022-02-24 14:49 | disposition home or self-care (01) | DRG 190 ==
LOC: ED 16:27 → EDHOLD 19:05 → 4E 19:05
PROVIDERS: Family Medicine; Internal Medicine; Internal Medicine Nephrology; Nurse Practitioner Family; Ophthalmology; Student in an Organized Health Care Education/Training Program; ADMIT Internal Medicine; ATTEND Internal Medicine
DX: J44.1 Chronic obstructive pulmonary disease with (acute) exacerbation (principal); N17.0 Acute kidney failure with tubular necrosis; E87.1 Hypo-osmolality and hyponatremia; E44.0 Moderate protein-calorie malnutrition; E11.65 Type 2 diabetes mellitus with hyperglycemia; E78.5 Hyperlipidemia, unspecified; E55.9 Vitamin D deficiency, unspecified; F41.9 Anxiety disorder, unspecified; I25.10 Atherosclerotic heart disease of native coronary artery without angina pectoris; I50.9 Heart failure, unspecified; Z20.822 Contact with and (suspected) exposure to COVID-19; E11.51 Type 2 diabetes mellitus with diabetic peripheral angiopathy without gangrene; E87.8 Other disorders of electrolyte and fluid balance, not elsewhere classified; R74.01 Elevation of levels of liver transaminase levels; E87.5 Hyperkalemia; Z88.6 Allergy status to analgesic agent; Z88.1 Allergy status to other antibiotic agents; Z88.0 Allergy status to penicillin; Z88.8 Allergy status to other drugs, medicaments and biological substances; Z90.49 Acquired absence of other specified parts of digestive tract; Z95.1 Presence of aortocoronary bypass graft; Z90.710 Acquired absence of both cervix and uterus; Z95.0 Presence of cardiac pacemaker; Z82.49 Family history of ischemic heart disease and other diseases of the circulatory system; Z83.6 Family history of other diseases of the respiratory system; Z68.39 Body mass index [BMI] 39.0-39.9, adult